=== PATIENT | male | born 1940 | race Caucasian/White ===

== ENCOUNTER 2023-11-01 09:53 | Inpatient (IN) | payer BC ==
[~2023-11-01] VITALS: Ht 170.2 cm; Wt 72.7 kg
[2023-11-01 10:29] LABS: BASOPHILS % (AUTO) 0.2 % (0-1); EOSINOPHILS % (AUTO) 0.2 % (0-6); HEMATOCRIT 45.8 % (42.0-52.0); HEMOGLOBIN 15.4 g/dl (14.0-17.9); LYMPHOCYTES # (AUTO) 0.9 X10'3 (1.1-4.8); LYMPHOCYTES % (AUTO) 7.4 % (21-51); MEAN CORPUSCULAR HEMOGLOBIN 33.3 PG (27.0-31.0); MEAN CORPUSCULAR HGB CONC 33.7 g/dL (33.0-36.5); MEAN CORPUSCULAR VOLUME 98.9 FL (78-98); MEAN PLATELET VOLUME 7.7 FL (7.4-10.4); MONOCYTES # (AUTO) 0.5 X10'3 (0-0.9); MONOCYTES % (AUTO) 4.2 % (2-12); NEUTROPHILS # (AUTO) 10.2 X10'3 (1.8-7.7); PLATELET COUNT 231 X10'3 (140-440); RED BLOOD COUNT 4.63 X10'6 (4.70-6.10); RED CELL DISTRIBUTION WIDTH 13.4 % (11.5-14.5); WHITE BLOOD COUNT 11.6 X10'3 (4.5-11.0)
[2023-11-01 10:50] LABS: ALANINE AMINOTRANSFERASE 22 U/L (12-78); ALBUMIN 3.8 G/DL (3.4-5.0); ALBUMIN/GLOBULIN RATIO 0.9 (1.1-1.5); ALKALINE PHOSPHATASE 68 IU/L (46-116); ANION GAP 11 (8-16); ASPARTATE AMINO TRANSFERASE 14 U/L (10-37); BILIRUBIN,TOTAL 0.9 MG/DL (0.1-1.0); BLOOD UREA NITROGEN 17 MG/DL (7-18); BUN/CREATININE RATIO 14.8 (10.0-20.0); CALCIUM 9.2 MG/DL (8.5-10.1); CHLORIDE 98 MMOL/L (99-107); CREATININE 1.15 MG/DL (0.60-1.10); GLUCOSE 357 MG/DL (70-104); LIPASE 16 U/L (16-77); POTASSIUM 4.3 MMOL/L (3.5-5.1); SODIUM 133 MMOL/L (135-145); TOTAL CARBON DIOXIDE 24.2 MMOL/L (24-32); TOTAL PROTEIN 7.9 G/DL (6.4-8.2); eCRCL 46 ML/MIN; eGFR 61 ML/MIN
[2023-11-01] MEDS: HYDROmorphone/PF 0.2 MG/ML SYRINGE IV PRN (13:00)
[2023-11-01] MEDS ORDERED: potassium Cl 20 mEq SR tablet PO PRN ×2 (13:10)
[2023-11-01] MEDS ORDERED: potassium Cl 40MEQ/1/2NS 520ml 520 ML IV PRN (13:10)
[2023-11-01] MEDS ORDERED: magnesium 4gm in 100ml NS 100 ML IV PRN (13:10)
[2023-11-01] MEDS ORDERED: magnesium Cl slow-release 64mg tablet PO PRN (13:10)
[2023-11-01] MEDS ORDERED: magnesium 2GM in 50ml NS 50 ML IV PRN (13:10)
[2023-11-01 18:00] VITALS: BP 113/71; PULSE 74; RESP 18; TEMP 98; O2SAT 96
[2023-11-01] MEDS ORDERED: FESO4TAB PO (19:28)
[2023-11-01] MEDS ORDERED: NOVRI SQ (19:28)
[2023-11-01] MEDS ORDERED: MULT-1085 PO (19:28)
[2023-11-01] MEDS ORDERED: LANTUS SUBCUT (19:28)
[2023-11-01] MEDS ORDERED: LOSA-415 PO (19:28)
[2023-11-01] MEDS ORDERED: ATOR20TA PO (19:28)
[2023-11-01 20:00] VITALS: RESP 18; O2SAT 96
[2023-11-01] MEDS: K and/or MAG REPLACEMENT MC SCH (20:21)
[2023-11-01] MEDS ORDERED: glucagon, human recombinant 1mg kit SUBCUT PRN (20:35)
[2023-11-01] MEDS ORDERED: DEXTROSE 15 GM of carb/4 tabs (each vial/BOTTLE has 4 tablets) PO PRN ×2 (20:35)
[2023-11-01] MEDS ORDERED: dextrose 50%-water 50ml dispensing syringe IV PRN ×2 (20:35)
[2023-11-01] MEDS ORDERED: morphine 2 MG/ML inj. syringe IV PRN ×2 (21:05→22:25)
[2023-11-01] MEDS ORDERED: ondansetron/PF 4mg/2ml inj IV PRN (21:05)
[2023-11-01] MEDS: HYDROcodone/acetaminophen 5mg/325mg tablet PO PRN (21:17)
[2023-11-01] MEDS: LidoCAINE 2% Topical Jelly 11mL syringe (UROJET) TOP ONE (21:17)
[2023-11-01 22:00] VITALS: BP 122/61; PULSE 71; RESP 14; TEMP 98.2; O2SAT 94
[2023-11-01 22:01] LABS: BILIRUBIN,URINE SMALL (Neg); CLARITY,URINE CLOUDY (Clear); COLOR,URINE BROWN (Yellow); GLUCOSE, URINE >=1000 mg/dl (Neg); KETONES,URINE 15 mg/dl (Neg); LEUKOCYTE ESTERASE ,URINE NEGATIVE (Neg); OCCULT BLOOD,URINE LARGE (Neg); PH,URINE 5.5 (4.8-8.0); PROTEIN,URINE 100 mg/dl (Neg); UROBILINOGEN,URINE 0.2 E.U/dL (0.2-1.0)
[2023-11-01 22:03] LABS: NITRITES, URINE NEGATIVE (Neg); UA COLLECTION TYPE FOLEY CATH
[2023-11-01] MEDS: INSULIN LISPRO 100 UNIT/ML INSULN.PEN MULTI-DOSE SQ SCH (22:05)
[2023-11-01] MEDS: normal saline 1000ml 1,000 ML IV SCH (22:07)
[2023-11-01 22:10] LABS: RBC,URINE TNTC /HPF (0-2)
[2023-11-01 22:13] LABS: SQUAMOUS EPITHELIAL CELL,UR FEW /LPF (FEW); WBC,URINE 0-4 /HPF (0-4)
[2023-11-01 22:14] LABS: BACTERIA,URINE FEW /HPF (Neg); TRANSITIONAL EPI CELLS,URINE FEW /HPF
[2023-11-01 22:15] LABS: RENAL CELLS, URINE FEW /HPF
[2023-11-02 06:40] LABS: ALBUMIN 2.9 G/DL (3.4-5.0); ANION GAP 8 (8-16); BLOOD UREA NITROGEN 17 MG/DL (7-18); BUN/CREATININE RATIO 19.1 (10.0-20.0); CALCIUM 8.7 MG/DL (8.5-10.1); CHLORIDE 104 MMOL/L (99-107); CREATININE 0.89 MG/DL (0.60-1.10); GLUCOSE 203 MG/DL (70-104); MAGNESIUM 2.2 MG/DL (1.5-2.4); POTASSIUM 4.9 MMOL/L (3.5-5.1); SODIUM 135 MMOL/L (135-145); TOTAL CARBON DIOXIDE 22.9 MMOL/L (24-32); eCRCL 60 ML/MIN; eGFR 82 ML/MIN
[2023-11-02 06:59] VITALS: BP 138/67; PULSE 69; RESP 16; TEMP 97.7; O2SAT 94
[2023-11-02 07:00] VITALS: RESP 16; O2SAT 94
[2023-11-02] MEDS: multivitamins, therapeutics tablet PO SCH (07:10)
[2023-11-02] MEDS: losartan 25mg tablet PO SCH (07:10)
[2023-11-02] MEDS: atorvastatin 20mg tablet PO SCH (07:10)
[2023-11-02] MEDS: oxybutynin 5mg tablet PO SCH (07:10)
[2023-11-02] MEDS: CefTRIAXone/D5W-Rocephin 1gm 50 ML IV SCH (07:12)
[2023-11-02 10:24] LABS: HEMOGLOBIN 14.9 g/dl (14.0-17.9); PLATELET COUNT 210 X10'3 (140-440)
[2023-11-02 10:26] LABS: BASOPHILS % (AUTO) 0.2 % (0-1); EOSINOPHILS # (AUTO) 0.2 X10'3 (0-0.9); EOSINOPHILS % (AUTO) 1.9 % (0-6); HEMATOCRIT 44.4 % (42.0-52.0); LYMPHOCYTES # (AUTO) 1.2 X10'3 (1.1-4.8); LYMPHOCYTES % (AUTO) 10.8 % (21-51); MEAN CORPUSCULAR HEMOGLOBIN 33.1 PG (27.0-31.0); MEAN CORPUSCULAR HGB CONC 33.5 g/dL (33.0-36.5); MONOCYTES # (AUTO) 0.7 X10'3 (0-0.9); MONOCYTES % (AUTO) 6.8 % (2-12); NEUTROPHILS # (AUTO) 8.7 X10'3 (1.8-7.7); NEUTROPHILS % (AUTO) 80.3 % (42-75); RED BLOOD COUNT 4.49 X10'6 (4.70-6.10); RED CELL DISTRIBUTION WIDTH 13.7 % (11.5-14.5); WHITE BLOOD COUNT 10.8 X10'3 (4.5-11.0)
[2023-11-02 11:00] VITALS: BP 134/68; PULSE 78; RESP 16; TEMP 98; O2SAT 94
[2023-11-02 18:00] VITALS: BP 132/72; PULSE 82; RESP 16; TEMP 97.9; O2SAT 94
[2023-11-02 20:00] VITALS: RESP 16; O2SAT 94
[2023-11-02 22:00] VITALS: BP 151/67; PULSE 69; RESP 16; TEMP 99.1; O2SAT 95
[2023-11-03 06:25] VITALS: BP 138/60; PULSE 70; RESP 18; TEMP 98.7; O2SAT 96
[2023-11-03 06:41] LABS: BASOPHILS % (AUTO) 0.3 % (0-1); EOSINOPHILS # (AUTO) 0.2 X10'3 (0-0.9); EOSINOPHILS % (AUTO) 2.1 % (0-6); HEMATOCRIT 40.2 % (42.0-52.0); HEMOGLOBIN 13.6 g/dl (14.0-17.9); LYMPHOCYTES # (AUTO) 1.4 X10'3 (1.1-4.8); LYMPHOCYTES % (AUTO) 14.3 % (21-51); MEAN CORPUSCULAR HEMOGLOBIN 33.4 PG (27.0-31.0); MEAN CORPUSCULAR HGB CONC 33.8 g/dL (33.0-36.5); MEAN CORPUSCULAR VOLUME 98.8 FL (78-98); MONOCYTES # (AUTO) 0.9 X10'3 (0-0.9); MONOCYTES % (AUTO) 8.9 % (2-12); NEUTROPHILS # (AUTO) 7.4 X10'3 (1.8-7.7); NEUTROPHILS % (AUTO) 74.4 % (42-75); PLATELET COUNT 191 X10'3 (140-440); RED BLOOD COUNT 4.06 X10'6 (4.70-6.10); RED CELL DISTRIBUTION WIDTH 13.4 % (11.5-14.5); WHITE BLOOD COUNT 9.9 X10'3 (4.5-11.0)
[2023-11-03 07:06] LABS: ALBUMIN 2.6 G/DL (3.4-5.0); ANION GAP 8 (8-16); BLOOD UREA NITROGEN 12 MG/DL (7-18); BUN/CREATININE RATIO 15.8 (10.0-20.0); CALCIUM 8.2 MG/DL (8.5-10.1); CHLORIDE 107 MMOL/L (99-107); CREATININE 0.76 MG/DL (0.60-1.10); GLUCOSE 245 MG/DL (70-104); MAGNESIUM 1.9 MG/DL (1.5-2.4); SODIUM 139 MMOL/L (135-145); TOTAL CARBON DIOXIDE 24.3 MMOL/L (24-32); eCRCL 70 ML/MIN; eGFR > 90 ML/MIN
[2023-11-03 07:15] VITALS: RESP 18; O2SAT 96
[2023-11-03 11:00] VITALS: BP 149/65; PULSE 65; RESP 15; TEMP 98.1; O2SAT 96
== END 2023-11-03 17:50 | disposition home or self-care (01) | DRG 640 ==
LOC: ER 09:54 → ED HOLD 13:07 → EDBEDREQ 16:08 → SUR 3N 17:00
PROVIDERS: ADMIT Internal Medicine; ATTEND Internal Medicine
DX: E87.1 Hypo-osmolality and hyponatremia (principal); N17.0 Acute kidney failure with tubular necrosis; N39.0 Urinary tract infection, site not specified; I10 Essential (primary) hypertension; E11.9 Type 2 diabetes mellitus without complications; E78.5 Hyperlipidemia, unspecified; Z85.46 Personal history of malignant neoplasm of prostate
CPT/HCPCS: 36415; 80048; 80053; 81001; 82948; 83036; 83690; 83735; 85025; 87040; 87081; 93005; 99285; A4314; A5200; G0378; J0696; J1170; J1815; J7030